=== PATIENT | female | born 1965 | race African-American/Black ===

== ENCOUNTER 2021-01-20 09:53 | Emergency (ER) | payer OTHER ==
[2021-01-20 10:03] VITALS: BP 155/88; PULSE 60; TEMP 97.6; BMI 41.1
[2021-01-20 11:27] LABS: BASO % 0.9 % (0-2.0); EOS % 3.2 % (0-4.5); HEMATOCRIT 40.1 % (32.4-45.2); HEMOGLOBIN 13.8 GM/dL (10.7-15.3); LYMPH % 24.6 % (8-40); MCHC 34.4 g/dl (32.0-36.0); MEAN CELL VOLUME 84.3 fl (80-96); MEAN PLT VOLUME 8.6 fl (7.5-11.1); MONO % 5.1 % (3.8-10.2); NEUT % 66.2 % (42.8-82.8); PLATELET COUNT 290 10^3/uL (134-434); RBC 4.75 M/mm3 (3.60-5.2); WHITE BLOOD COUNT 6.6 K/mm3 (4.0-10.0)
[2021-01-20 12:31] LABS: ALBUMIN 3.8 g/dl (3.4-5.0); ALK PHOS 124 U/L (45-117); ANION GAP 5 MMOL/L (8-16); BILIRUBIN,TOTAL 0.5 mg/dL (0.2-1); CALCIUM 9.4 mg/dL (8.5-10.1); CHLORIDE 108 mmol/L (98-107); CO2 29 mmol/L (21-32); CREATININE 1.1 mg/dL (0.55-1.3); GLUCOSE,RANDOM 95 mg/dL (74-106); N-TERMINAL BNP 54.8 pg/ml (5-125); SGOT/AST 16 U/L (15-37); SGPT/ALT 25 U/L (13-61); SODIUM 142 mmol/L (136-145); TOT PROT 7.9 g/dl (6.4-8.2)
[2021-01-20] MEDS ORDERED: ASPIRIN 81 MG CHEWABLE TABLETS PO ONE (14:33)
[2021-01-20] MEDS ORDERED: ASPIRIN 81 MG CHEWABLE TABLETS ONE (14:43)
== END 2021-01-20 16:24 | disposition home or self-care (01) ==
LOC: JER 09:53
DX: R07.89 Other chest pain (principal)
CPT/HCPCS: 36415; 71046-TC-FY; 71275-TC; 80053; 83880; 84439; 84443; 84481; 84484; 85025; 85379; 87804; 93005; 93010; 99285-25; Q9967

== ENCOUNTER 2023-06-06 10:41 | Emergency (ER) | payer OTHER ==
[2023-06-06 10:55] VITALS: BP 142/68; PULSE 63; RESP 18; TEMP 97.3; BMI 42.9
== END 2023-06-06 15:34 | disposition home or self-care (01) ==
LOC: JERFT 10:41
DX: M79.605 Pain in left leg (principal); S86.912A Strain of unspecified muscle(s) and tendon(s) at lower leg level, left leg, initial encounter; X58.XXXA Exposure to other specified factors, initial encounter
CPT/HCPCS: 93971-TC; 99284-25